=== PATIENT | female | born 1990 | race Caucasian/White ===

== ENCOUNTER → 2017-09-17 08:22 | Outpatient (CLI) | payer BC, SELFPAY ==
--- NOTE | 2017-09-17 08:29 | US_ITS ---
STUDY: ABDOMINAL ULTRASOUND - RIGHT UPPER QUADRANT REASON FOR VISIT: Female, 26 years old. Right upper quadrant pain. TECHNIQUE: Ultrasound evaluation of the right upper quadrant was performed with real-time and static odell-scale imaging. TECHNICAL QUALITY: Adequate. COMPARISON: None. FINDINGS: Liver: The liver measures 14.8 cm. There is increased echogenicity consistent with fatty infiltration. The bile ducts are within normal limits. There is hepatic color flow. The direction of portal flow is hepatopetal. There is no demonstrated mass lesion. Gallbladder: Normal distended gallbladder. The gallbladder wall measures 3.2 mm. There is a negative sonographic Peng's sign. There is no pericholecystic fluid. There are no gallstones. There is a 4 mm polyp adherent to the gallbladder wall. Common Bile Duct (C.B.D.): The common bile duct measures 3.7 mm. Pancreas: Normal size of the head, body of the pancreas. The tail portion is obscured due to overlying bowel gas. There is normal echogenicity of the pancreas. There is no demonstrated pancreatic mass or cyst. Right Kidney: Normal size of the right kidney. The right kidney measures 11.0 cm x 4.5 cm x 4.7 cm. Normal renal cortex. The right cortex measures 1.7 cm. There is no demonstrated renal mass or cyst. There is no right hydronephrosis. US/Gallbladder IMPRESSION: Fatty infiltration of the liver. Small gallbladder polyp. Electronically Signed: Joel Ashby MD at 12:51 EST Tel [phone], Service support ,
== END ==
PROVIDERS: Family Provider Family Medicine; PCP Family Medicine; Visit Provider Family Medicine
DX: K76.0 Fatty (change of) liver, not elsewhere classified (principal); K82.4 Cholesterolosis of gallbladder
CPT/HCPCS: 76705

== ENCOUNTER → 2017-10-06 12:37 | Outpatient (CLI) | payer BC, SELFPAY ==
--- NOTE | 2017-10-06 12:39 | NM_ITS ---
CLINICAL: 26 year old female with history of right upper quadrant pain. RADIONUCLIDE HEPATOBILIARY SCINTIGRAPHY COMPARISON: Abdominal ultrasound report 09/17/2017 FINDINGS: Following the intravenous administration of 5.2 mCi of 99m Tc Mebrofenin, hepatobiliary images reveal: 1. Relatively prompt and homogeneous radiopharmaceutical concentration is noted by a normal sized liver. No parenchymal defects are identified. 2. Gallbladder activity is identified at 30 minutes post radiopharmaceutical administration. 3. Small intestinal tract is observed at 10 minutes following tracer injection. 4. Washout of the radiopharmaceutical by the hepatic parenchyma appears qualitatively normal. The patient was administered a fatty meal (8 ounces BOOST-30 grams fat). The post fatty meal consumption gallbladder ejection fraction calculated at 60 minutes was noted to be 36.0 % (normal greater than 30%). NM/Hepatobilliary Imaging IMPRESSION: 1. NORMAL 99m Tc Mebrofenin hepatobiliary imaging examination with fatty meal ingestion. A. A gallbladder ejection fraction calculated to be greater than 30% following the administration of a consumed fatty meal makes the probability of functional hepatobiliary disease (gallbladder and/or sphincter of Oddi dyskinesia) and/or organic hepatobiliary disease (chronic acalculous cholecystitis and/or cystic duct syndrome) to be low. (Jaquelin and Adrian, J Nucl Med 43: 1603, 2002). Electronically Signed: Jose Ritter DO at 23:59 EST Tel , Service support ,
== END ==
PROVIDERS: Family Provider Family Medicine; PCP Family Medicine; Visit Provider Family Medicine
DX: R10.13 Epigastric pain (principal)
CPT/HCPCS: 78226; A9537

== ENCOUNTER → 2017-12-31 11:41 | Outpatient (CLI) | payer BC, SELFPAY ==
[2018-01-06 11:23] LABS: HPV Reflexed? NOT INDICATED
== END ==
PROVIDERS: Visit Provider Obstetrics & Gynecology
DX: Z12.4 Encounter for screening for malignant neoplasm of cervix (principal)
CPT/HCPCS: 88175; G0145

== ENCOUNTER 2018-08-24 18:57 | Emergency (ER) | payer BC, SELFPAY ==
[2018-08-24 18:59] VITALS: BP 152/85; PULSE 77; RESP 18; TEMP 36.7; O2SAT 99; BMI 38.4
--- NOTE | 2018-08-24 19:25 | RAD_ITS ---
STUDY: X-RAY - RIGHT ANKLE REASON FOR EXAM: Female, 27 years old. Status post fall ankle pain and swelling TECHNIQUE: 3 view(s) of the ankle. COMPARISON: None. FINDINGS: Normal visualized soft tissue edema especially about the lateral malleolus. There is a trace sliver of density distal to the fibula which may represent a tiny avulsion injury. The medial malleolus appears intact. Normal tibiotalar articulation and ankle mortise. Normal visualized talus and calcaneus. The visualized subtalar, talonavicular, calcaneocuboid and tarsal articulations are normal. RAD/Ankle min 3 Views IMPRESSION: There is soft tissue edema especially about the lateral malleolus. There is a trace sliver of density distal to the fibula which may represent a tiny avulsion injury. Electronically Signed: Christa Peng MD at 20:04 EST Tel , Service support ,
[2018-08-24 19:47] VITALS: BP 122/90; PULSE 66; RESP 18; O2SAT 99
--- NOTE | 2018-08-24 21:16 | ED.VISSUMM ---
- ER Visit Summary Date of Service: 08/24/18 Chief Complaint: Right ankle injury History of Present Illness: The patient is a 27 F who presents with right ankle injury that occurred today. Patient states she was walking on a treadmill when she fell while stepping off of the treadmill. Patient thinks she inverted her ankle. Patient denies any snapping or popping sensation. Patient states her pain is worse with movement and walking. Patient does admit to some tingling in her toes. Patient denies any weakness. Patient denies any other injuries. Physical Examination: Vital signs are stable. Patient is afebrile. Patient is in no acute distress. Musculoskeletal exam reveals tenderness, edema, and mild ecchymosis over the lateral aspect of the right ankle. There is no bony crepitance or step-off. Range of motion was limited in all motions of the right ankle secondary to pain. Pedal pulses are equal bilaterally. Sensation was intact to light touch in all dermatomes of the right foot. Capillary refill was less than 2 seconds in all digits. Test Results: X-rays of the right ankle were obtained. There is a questionable tiny avulsion fracture of the tip of the lateral malleolus. This was interpreted by the radiologist and reviewed by myself. Emergency Department Course and Treatment: Patient was given an Aircast. Patient was instructed to ice and elevate the right ankle. Patient was instructed to follow-up with her primary care physician in 5-7 days. Patient understood and was agreeable with the plan. All questions were answered. Disposition: Discharge home Impression: Acute sprain right ankle This note was generated with [employer] dictation software. It may contain incorrect words, spelling, and punctuation that were not noted in review of the chart prior to signing ED Disposition - Plan for ED Patient: Disposition: Home or Assisted Living Chief Complaint: Lower Extremity Injury Diagnosis: Right ankle sprain Instructions: ED Sprain Ankle W X Ray Referrals: Gabriel Salmeron MD [Primary Care Provider] -
--- NOTE | 2018-08-24 21:19 | ED.DCSUM_ITS ---
- ER Visit Summary Date of Service: 08/24/18 Chief Complaint: Right ankle injury History of Present Illness: The patient is a 27 F who presents with right ankle injury that occurred today. Patient states she was walking on a treadmill when she fell while stepping off of the treadmill. Patient thinks she inverted her ankle. Patient denies any snapping or popping sensation. Patient states her pain is worse with movement and walking. Patient does admit to some tingling in her toes. Patient denies any weakness. Patient denies any other injuries. Physical Examination: Vital signs are stable. Patient is afebrile. Patient is in no acute distress. Musculoskeletal exam reveals tenderness, edema, and mild ecchymosis over the lateral aspect of the right ankle. There is no bony crepitance or step-off. Range of motion was limited in all motions of the right ankle secondary to pain. Pedal pulses are equal bilaterally. Sensation was intact to light touch in all dermatomes of the right foot. Capillary refill was less than 2 seconds in all digits. Test Results: X-rays of the right ankle were obtained. There is a questionable tiny avulsion fracture of the tip of the lateral malleolus. This was interpreted by the radiologist and reviewed by myself. Emergency Department Course and Treatment: Patient was given an Aircast. Patient was instructed to ice and elevate the right ankle. Patient was instruct ed to follow-up with her primary care physician in 5-7 days. Patient understood and was agreeable with the plan. All questions were answered. Disposition: Discharge home Impression: Acute sprain right ankle This note was generated with [employer] dictation software. It may contain incorrect words, spelling, and punctuation that were not noted in review of the chart prior to signing ED Disposition - Plan for ED Patient: Disposition: Home or Assisted Living Chief Complaint: Lower Extremity Injury Diagnosis: Right ankle sprain Instructions: ED Sprain Ankle W X Ray Referrals: Gabriel Salmeron MD [Primary Care Provider] -
[2018-08-24] MEDS: Ibuprofen 400 MG Tablet 800 MG PO (21:24)
== END 2018-08-24 21:51 | disposition home or self-care (01) ==
PROVIDERS: Emergency Provider Emergency Medicine; Family Provider Family Medicine; PCP Family Medicine
DX: S93.401A Sprain of unspecified ligament of right ankle, initial encounter (principal); W17.89XA Other fall from one level to another, initial encounter; Y93.A1 Activity, exercise machines primarily for cardiorespiratory conditioning
CPT/HCPCS: 73610; 99283

== ENCOUNTER → 2021-01-10 17:16 | Outpatient (CLI) | payer OTHER, SELFPAY ==
[2021-01-10 13:41] VITALS: BMI 38.4
[2021-01-17 15:22] LABS: HPV APTIMA, High Risk Negative (Negative)
== END ==
PROVIDERS: PCP Family Medicine; Referring Provider Obstetrics & Gynecology; Visit Provider Obstetrics & Gynecology
DX: Z12.4 Encounter for screening for malignant neoplasm of cervix (principal)
CPT/HCPCS: 87624; 88175; G0145

== ENCOUNTER → 2021-04-05 13:36 | Outpatient (CLI) | payer OTHER, SELFPAY ==
[2021-04-05 15:09] LABS: Absolute Lymphocyte Count 2.25 X10^3/uL (0.83-4.51); Absolute Neutrophil Count 5.1 X10^3/uL (2.0-7.7); Basophil# 0.05 X10^3/uL; Basophil% 0.6 % (0-1); Eosinophils% 1.3 % (0-5); Hematocrit 43.9 % (37-47); Hemoglobin 14.6 g/dL (12.0-15.0); Lymphocyte # 2.25 X10^3/ul (0.83-4.51); Lymphocyte % 28.1 % (19-41); Mean Corp Hgb Conc 33.3 g/dL (32-36); Mean Corpuscular Hgb 28.2 pg (27.0-32.0); Mean Corpuscular Volume 84.9 fL (81-99); Mean Platelet Vol. 9.7 fl (6.2-12.0); Monocyte# 0.45 X10^3/uL; Monocyte% 5.6 % (0-10); NRBC Flagged by Analyzer 0 % (0-5); Neutrophil # 5.12 X10^3/uL (2.7-7.7); Platelet Count 318 K/mm3 (150-450); RBC Distribution Width CV 13.1 % (11.6-14.6); RBC Distribution Width SD 40.8 fl (35.1-43.9); Red Blood Count 5.17 M/mm3 (4.2-5.4)
[2021-04-05 15:21] LABS: Vitamin B12 504 pg/mL (211-911)
[2021-04-05 15:27] LABS: ALB/GLOB Ratio 1.1 RATIO (0.9-2.4); AST(SGOT) 13 U/L (15-37); Alanine Aminotransfer ALT/SGPT 33 U/L (13-56); Albumin, Serum 4.2 g/dL (3.2-5.0); Alkaline Phosphatase 78 U/L (45-117); Anion Gap 6 (5-15); BUN 12 mg/dL (7-18); BUN/Creat Ratio 14.2 RATIO (10-20); Calcium,Total 8.9 mg/dL (8.5-10.1); Chloride 105 mmol/L (98-107); Cholesterol 170 mg/dL (200); Creatinine, Serum 0.84 mg/dL (0.55-1.02); EST Glomerular Filtration Rate 83 mL/min (>60); Est Glom Filt Rate - Afr Amer 100 mL/min (>60); Globulin 3.8 g/dL (2.2-4.2); Glucose 117 mg/dL (74-106); High Density Lipoprotein 45 mg/dL; Potassium 3.4 mmol/L (3.5-5.1); Sodium Level 137 mmol/L (136-145); T4 Free Direct 0.91 ng/dL (0.76-1.46); Thyroid Stim Hormone (TSH) 0.51 uIU/mL (0.358-3.74); Triglycerides 129 mg/dL; Very Low Density Lipoprotein 26 mg/dL (5-40)
== END ==
PROVIDERS: PCP Family Medicine; Referring Provider Family Medicine; Visit Provider Family Medicine
DX: E66.01 Morbid (severe) obesity due to excess calories (principal); K76.0 Fatty (change of) liver, not elsewhere classified; R20.2 Paresthesia of skin; R06.00 Dyspnea, unspecified
CPT/HCPCS: 36415; 80053; 80061; 82607; 84439; 84443; 85025

== ENCOUNTER 2021-07-16 12:30 | Outpatient (RCR) | payer OTHER, SELFPAY ==
--- NOTE | 2020-12-05 13:25 | MASS.EVAL ---
Massage Therapy Evaluation: Initial Evaluation Date: 12/04/2020 SUBJECTIVE: Ada is a 29 year old female who was referred to the [facility] facility for a massotherapy evaluation by Dr. Salmeron with the diagnosis of cervicalgia and shoulder pain. She presents today with the symptoms of pain, stiffness and tension in the neck, head, mid back and low back. OBJECTIVE: Upon observation Ada has some posture issues with her head and shoulders forward from the neutral position in sitting and standing. After examination and palpation, I found Ada to have high muscle tension with tenderness and myofascial restrictions in her sub occipitals, levator scapulae, trapezius, rhomboids, scalenes, and thoracic paraspinals. Her QL?s and lumbar paraspinals all were very tight with fascial restrictions, tender points and trigger points. The first treatment consisted of a one hour massage to her upper body with myofascial release, muscle stripping, trigger point compression techniques, and cervical manual traction. ASSESSMENT: I feel that Ada is a good candidate for massotherapy at this time. She had a favorable response to the first treatment with reduction in her muscle aches, pain and tension. She also had improvement in her cervical flexibility and low back flexibility. PLAN: The plan of care was reviewed with the patient. The patient is to be seen on an as needed basis for a total of ten sessions with the recommendation of once every month for a one hour treatment.
--- NOTE | 2021-08-13 09:50 | DS.PCM_ITS ---
Massage Therapy Discharge Summary: Discharge date 08/13/21 Ada was seen for a massotherapy evaluation on December 04, 2020. She was being treated for neck and shoulder pain. The patient was treated with 3 sessions of massage consisting of one hour treatment to the upper body using moderate to deep pressure. The patient responded well to treatments. At this time I am discharging this patient from our care at the [facility].
== END 2021-07-16 19:00 | disposition home or self-care (01) ==
LOC: MASS 12:30
PROVIDERS: PCP Family Medicine; Visit Provider Family Medicine
DX: M54.2 Cervicalgia (principal); M25.511 Pain in right shoulder; M25.512 Pain in left shoulder
CPT/HCPCS: 97124

== ENCOUNTER → 2021-07-22 11:58 | Outpatient (CLI) | payer OTHER, SELFPAY ==
--- NOTE | 2021-07-22 13:23 | NEURO ---
NCS and/or EMG Patient Report Ordering Doctor: Jeremías Lam DATE OF SERVICE: 07/22/21 Indication: Intermittent hand pain, tingling, weakness (right greater than left). No localized or radicular neck pain. Evaluate for entrapment neuropathy. Findings: Nerve conduction studies were performed in the right and left upper extremities. The right median motor study recording the abductor pollicis brevis showed a normal amplitude, normal distal latency and normal conduction velocity. The right ulnar motor study recording the abductor digiti minimi showed a normal amplitude, normal distal latency and normal conduction velocity. No conduction block or focal slowing was present across the elbow. The right median sensory response recording digit two showed a normal amplitude, latency and conduction velocity. The right ulnar sensory response recording digit five showed a normal amplitude, latency and conduction velocity. The right radial sensory response recording over the extensor snuff box showed a normal amplitude, latency and conduction velocity. The left median motor study recording the abductor pollicis brevis showed a normal amplitude, normal distal latency and normal conduction velocity. The left ulnar motor study recording the abductor digiti minimi showed a normal amplitude, normal distal latency and normal conduction velocity. No conduction block or focal slowing was present across the elbow. The left median sensory response recording digit two showed a normal amplitude, latency and conduction velocity. The left ulnar sensory response recording digit five showed a normal amplitude, latency and conduction velocity. The left radial sensory response recording over the extensor snuff box showed a normal amplitude, latency and conduction velocity. Right median-ulnar lumbrical / interosseous motor latencies showed a normal median latency compared to the ulnar. Left median-ulnar lumbrical / interosseous motor latencies showed a normal median latency compared to the ulnar. Needle EMG of the right upper extremity and cervical paraspinal muscles was performed. No denervation was seen in any muscle. All motor unit morphology, activation and recruitment patterns were normal. Impression: This is a normal study. There is no electrophysiologic evidence of median neuropathy across the wrist on either side. In addition, there is no electrophysiologic evidence of cervical radiculopathy in the right upper extremity. Please note: electrodiagnostic testing is appropriately 95% sensitive in detecting median neuropathy across the wrist when internal comparison studies are done, as was performed in this case. However, 5% of patients will have a false negative study. Presumably, in these patients, intermittent compression results in pain and paresthesias from ischemia, but without any fixed demyelination or axonal loss that can be demonstrated on electrodiagnostic studies. Thus, clinical correlation is required in the interpretation of this negative study. Armani Cline D.O. Multi Select Codes Neurology Neurology Interp Codes: 36104-29 [facility] [place] comp (interp) and 50365-30 [facility] test 13/> studies (interp)
== END ==
PROVIDERS: PCP Family Medicine; Referring Provider Orthopaedic Surgery; Visit Provider Orthopaedic Surgery
DX: G56.03 Carpal tunnel syndrome, bilateral upper limbs (principal)
CPT/HCPCS: 95886; 95913

== ENCOUNTER → 2022-03-07 | Outpatient (CLI) | payer OTHER, SELFPAY ==
[2022-03-07 12:31] LABS: Absolute Lymphocyte Count 2.19 X10^3/uL (0.83-4.51); Absolute Neutrophil Count 4.9 X10^3/uL (2.0-7.7); Basophil# 0.06 X10^3/uL; Basophil% 0.8 % (0-1); Eosinophil# 0.16 X10^3/uL; Hematocrit 44.2 % (37-47); Hemoglobin 14.4 g/dL (12.0-15.0); Lymphocyte # 2.19 X10^3/ul (0.83-4.51); Lymphocyte % 27.5 % (19-41); Mean Corp Hgb Conc 32.6 g/dL (32-36); Mean Corpuscular Hgb 28.6 pg (27.0-32.0); Mean Corpuscular Volume 87.7 fL (81-99); Mean Platelet Vol. 9.7 fl (6.2-12.0); Monocyte# 0.65 X10^3/uL; Monocyte% 8.2 % (0-10); NRBC Flagged by Analyzer 0 % (0-5); Neutrophil # 4.87 X10^3/uL (2.7-7.7); Neutrophil % 61.2 % (47-70); Platelet Count 333 K/mm3 (150-450); RBC Distribution Width CV 13.3 % (11.6-14.6); RBC Distribution Width SD 42.8 fl (35.1-43.9); Red Blood Count 5.04 M/mm3 (4.2-5.4)
[2022-03-07 12:41] LABS: AST(SGOT) 15 U/L (15-37); Alanine Aminotransfer ALT/SGPT 31 U/L (13-56); Albumin, Serum 3.8 g/dL (3.2-5.0); Alkaline Phosphatase 77 U/L (45-117); Anion Gap 5 (5-15); BUN 11 mg/dL (7-18); BUN/Creat Ratio 12.9 RATIO (10-20); Chloride 110 mmol/L (98-107); Creatinine, Serum 0.85 mg/dL (0.55-1.02); EST Glomerular Filtration Rate 82 mL/min (>60); Est Glom Filt Rate - Afr Amer 99 mL/min (>60); Globulin 3.8 g/dL (2.2-4.2); Glucose 98 mg/dL (74-106); Potassium 3.8 mmol/L (3.5-5.1); Protein, Total 7.6 g/dL (6.4-8.2); Sodium Level 140 mmol/L (136-145); Thyroid Stim Hormone (TSH) 1.14 uIU/mL (0.358-3.74)
[2022-03-07 12:55] LABS: Hemoglobin A1c 5.2 % (3.8-5.6)
== END | disposition home or self-care (01) ==
LOC: MTLAB 09:43
PROVIDERS: PCP Family Medicine; Referring Provider Family Medicine; Visit Provider Family Medicine
DX: K76.0 Fatty (change of) liver, not elsewhere classified (principal); F41.9 Anxiety disorder, unspecified; R53.83 Other fatigue; R73.02 Impaired glucose tolerance (oral)
CPT/HCPCS: 36415; 80053; 83036; 84439; 84443; 85025

== ENCOUNTER → 2022-09-11 | Outpatient (CLI) | payer OTHER, SELFPAY ==
[2022-09-15 06:07] LABS: Chlamydia By Nucleic Acid AMP Negative (Negative)
[2022-09-15 10:07] LABS: Gonococcus By Nucleic Acid AMP Negative (Negative)
== END | disposition home or self-care (01) ==
LOC: LABSPEC 17:45
PROVIDERS: PCP Family Medicine; Visit Provider Nurse Practitioner Women's Health
DX: Z11.3 Encounter for screening for infections with a predominantly sexual mode of transmission (principal)
CPT/HCPCS: 87491; 87591

== ENCOUNTER → 2022-10-10 | Outpatient (CLI) | payer OTHER, SELFPAY ==
--- NOTE | 2022-10-10 13:15 | LES_PTH ---
PATIENT: BIJU ELLSWORTH LOC: [facility] U#:[id number] AGE/SX: 31/F ROOM: RE10/10/[address]: Dr. Kacie Shaver DO : 1990 BED: DIS: 10/10/2022 SPEC #: [id number] RECD: 10/10/22 17:34 STATUS: KELLY TRORE #: [id number] EDWIN: 10/10/22 13:[address]: Kacie Shaver DEPT: SURGICAL PATHOLOGY RECD BY: Gail Arredondo ENTERED: 10/13/22 10:11 SP TYPE: Lesion OTHR DR: Dr. Gabriel Salmeron MD Tissues: Labium, NOS Procedures: Surgery Specimen Level IV HEADER OPERATION: Mole removal PRE-OP DIAGNOSIS: Skin mole TISSUE SUBMITTED: Left groin/labia MICROSCOPIC DIAGNOSIS Left groin/labia lesion, biopsy: Polypoid intradermal nevus. SJ:melony 10/14/2022 MICROSCOPIC DESCRIPTION Slides are reviewed. GROSS DESCRIPTION Received is one container labeled with the patient's name and not further designated. The specimen consists of an irregular fragment of light ramires skin with attached soft tissue measuring 1.5 x 1.0 x 0.5 cm. The cutaneous surface contains a polypoid lesion measuring 0.6 cm in greatest dimension. The specimen is inked, sectioned and totally submitted in one cassette. / AM:melony 10/13/2022 TC:1 CPT: 41372
== END | disposition home or self-care (01) ==
PROVIDERS: PCP Family Medicine; Visit Provider Obstetrics & Gynecology
DX: D22.9 Melanocytic nevi, unspecified (principal)
CPT/HCPCS: 88305

== ENCOUNTER → 2022-12-04 | Outpatient (CLI) | payer OTHER, SELFPAY ==
[2022-12-04 12:22] LABS: Vitamin D,25 Hydroxy 25.6 ng/mL
== END | disposition home or self-care (01) ==
LOC: BIMLAB 08:38
PROVIDERS: PCP Internal Medicine; Referring Provider Internal Medicine; Visit Provider Internal Medicine
DX: F32.A Depression, unspecified (principal); F41.9 Anxiety disorder, unspecified
CPT/HCPCS: 36415; 82306

== ENCOUNTER → 2023-02-19 | Outpatient (CLI) | payer OTHER, SELFPAY ==
[2023-02-19 18:13] LABS: Insulin 151.3 mU/L (2.6-37.6); Vitamin B12 347 pg/mL (211-911)
[2023-02-19 18:17] LABS: Hemoglobin A1c 5.4 % (3.8-5.6)
[2023-02-19 18:39] LABS: ALB/GLOB Ratio 0.9 RATIO (0.9-2.4); AST(SGOT) 17 U/L (15-37); Alanine Aminotransfer ALT/SGPT 37 U/L (13-56); Albumin, Serum 3.5 g/dL (3.2-5.0); Alkaline Phosphatase 72 U/L (45-117); Anion Gap 5 (5-15); BUN 14 mg/dL (7-18); BUN/Creat Ratio 14.1 RATIO (10-20); Calcium,Total 8.9 mg/dL (8.5-10.1); Chloride 108 mmol/L (98-107); Cholesterol 142 mg/dL (200); Creatinine, Serum 0.99 mg/dL (0.55-1.02); EST Glomerular Filtration Rate 68 mL/min (>60); Est Glom Filt Rate - Afr Amer 82 mL/min (>60); Globulin 3.7 g/dL (2.2-4.2); Glucose 102 mg/dL (74-106); High Density Lipoprotein 40 mg/dL; Potassium 3.9 mmol/L (3.5-5.1); Protein, Total 7.2 g/dL (6.4-8.2); Sodium Level 138 mmol/L (136-145); Thyroid Stim Hormone (TSH) 1.14 uIU/mL (0.358-3.74); Triglycerides 160 mg/dL; Very Low Density Lipoprotein 32 mg/dL (5-40)
== END | disposition home or self-care (01) ==
PROVIDERS: PCP Internal Medicine
DX: E66.01 Morbid (severe) obesity due to excess calories (principal)
CPT/HCPCS: 36415; 80053; 80061; 82607; 83036; 83525; 84443

== ENCOUNTER → 2023-08-05 | Outpatient (CLI) | payer OTHER, SELFPAY ==
[2023-08-05 18:03] LABS: Vitamin B12 361 pg/mL (211-911)
== END | disposition home or self-care (01) ==
LOC: MTLAB 16:47
PROVIDERS: PCP Internal Medicine
DX: E66.9 Obesity, unspecified (principal)
CPT/HCPCS: 36415; 82607

== ENCOUNTER → 2023-11-18 | Outpatient (CLI) | payer OTHER, SELFPAY ==
[2023-11-18 15:29] LABS: Progesterone Level 8.37 ng/mL (See Comment)
== END | disposition home or self-care (01) ==
LOC: MTLAB 12:39
PROVIDERS: PCP Internal Medicine; Referring Provider Nurse Practitioner Women's Health; Visit Provider Nurse Practitioner Women's Health
DX: N97.9 Female infertility, unspecified (principal)
CPT/HCPCS: 36415; 84144

== ENCOUNTER → 2023-11-27 | Outpatient (CLI) | payer OTHER, SELFPAY ==
[2023-11-27 14:00] LABS: Follicle Stimulating Hormone 5.3 mIU/mL; Luteinizing Hormone 5.1 mIU/mL; Prolactin 3.9 ng/mL; Thyroid Stim Hormone (TSH) 0.83 uIU/mL (0.358-3.74)
[2023-12-03 12:10] LABS: Testosterone Free 1.1 pg/mL (0.0-4.2)
== END | disposition home or self-care (01) ==
PROVIDERS: PCP Internal Medicine; Referring Provider Nurse Practitioner Women's Health; Visit Provider Nurse Practitioner Women's Health
DX: N97.9 Female infertility, unspecified (principal)
CPT/HCPCS: 36415; 82627; 82670; 83001; 83002; 83516; 84146; 84402; 84443; 82626

== ENCOUNTER → 2024-02-10 | Outpatient (CLI) | payer OTHER, SELFPAY ==
[2024-02-10 15:15] LABS: Absolute Lymphocyte Count 2.79 X10^3/uL (0.83-4.51); Absolute Neutrophil Count 4.8 X10^3/uL (2.0-7.7); Basophil# 0.04 X10^3/uL; Basophil% 0.5 % (0-1); Eosinophil# 0.17 X10^3/uL; Hematocrit 40.3 % (37-47); Lymphocyte # 2.79 X10^3/ul (0.83-4.51); Lymphocyte % 33.3 % (19-41); Mean Corp Hgb Conc 32.3 g/dL (32-36); Mean Corpuscular Hgb 27.3 pg (27.0-32.0); Mean Corpuscular Volume 84.7 fL (81-99); Mean Platelet Vol. 9.5 fl (6.2-12.0); Monocyte# 0.59 X10^3/uL; NRBC Flagged by Analyzer 0 % (0-5); Neutrophil # 4.79 X10^3/uL (2.7-7.7); Neutrophil % 57.1 % (47-70); Platelet Count 333 K/mm3 (150-450); Red Blood Count 4.76 M/mm3 (4.2-5.4); White Blood Count 8.4 K/mm3 (4.4-11.0)
[2024-02-10 15:54] LABS: Vitamin B12 307 pg/mL (211-911); Vitamin D,25 Hydroxy 34.3 ng/mL
[2024-02-10 16:09] LABS: ALB/GLOB Ratio 1.1 RATIO (0.9-2.4); AST(SGOT) 14 U/L (15-37); Alanine Aminotransfer ALT/SGPT 27 U/L (13-56); Alkaline Phosphatase 70 U/L (45-117); Anion Gap 7 (5-15); BUN 15 mg/dL (7-18); BUN/Creat Ratio 20.4 RATIO (10-20); Calcium,Total 9.2 mg/dL (8.5-10.1); Chloride 106 mmol/L (98-107); Creatinine, Serum 0.74 mg/dL (0.55-1.02); EST Glomerular Filtration Rate 95 mL/min (>60); Est Glom Filt Rate - Afr Amer 115 mL/min (>60); Globulin 3.6 g/dL (2.2-4.2); Glucose 81 mg/dL (74-106); Potassium 3.6 mmol/L (3.5-5.1); Protein, Total 7.6 g/dL (6.4-8.2); Sodium Level 139 mmol/L (136-145)
== END | disposition home or self-care (01) ==
PROVIDERS: PCP Internal Medicine; Referring Provider Internal Medicine; Visit Provider Internal Medicine
DX: F32.A Depression, unspecified (principal); F41.9 Anxiety disorder, unspecified; R53.83 Other fatigue
CPT/HCPCS: 36415; 80053; 82306; 82607; 85025

== ENCOUNTER → 2024-04-07 | Outpatient (CLI) | payer OTHER, SELFPAY ==
--- NOTE | 2024-04-07 12:17 | BI_ITS ---
MAMMOGRAPHY - BILATERAL SCREENING REASON FOR EXAM: Female, 33 years old. Routine annual screening examination. PERTINENT HISTORY: Non-contributory. TECHNIQUE: Digital bilateral breast raj (3D mammographic acquisition) in the CC and MLO projections. 2-D mediolateral oblique (MLO) and craniocaudad (CC) views of both breasts were obtained. CAD: Full Field Digital Mammography with Computer Added Detection was performed. COMPARISON: None. Baseline examination. FINDINGS: Breast Composition: The breasts are heterogeneously dense, which may obscure small masses. Focal area of architectural distortion is seen in the deep upper lateral aspect of the right breast. Patient will be recalled for additional views including compression spot views. No other significant abnormalities are identified. BI/SCRN MAMM (CAD)W/RAJ BILAT IMPRESSION: Focal area of architectural distortion is seen in the upper lateral aspect of the right breast as described. The patient will be recalled for additional views. Recall Side: Right Breast ASSESSMENT CATEGORY: BIRADS Category 0: Incomplete. Need additional imaging evaluation. A letter regarding these results will be sent to the patient by the facility within 30 days. Approximately 10% of breast cancers are not detected by mammography. A normal mammogram should not delay biopsy of a clinically suspicious abnormality. [id number] Electronically Signed: Joel Ashby MD at 12:52 EDT ,
== END | disposition home or self-care (01) ==
LOC: OPBI 12:17
PROVIDERS: PCP Internal Medicine; Referring Provider Nurse Practitioner Women's Health; Visit Provider Nurse Practitioner Women's Health
DX: Z12.31 Encounter for screening mammogram for malignant neoplasm of breast (principal)
CPT/HCPCS: 77063; 77067

== ENCOUNTER → 2024-04-11 | Outpatient (CLI) | payer OTHER, SELFPAY ==
--- NOTE | 2024-04-11 08:59 | BI_ITS ---
MAMMOGRAPHY - UNILATERAL DIAGNOSTIC: RIGHT BREAST REASON FOR EXAM: Female, 33 years old. Abnormal screening mammogram. PERTINENT HISTORY: Non-contributory. TECHNIQUE: Compression spot views in the mediolateral oblique and craniocaudal projections as well as a 90 degree lateral view were obtained. CAD: Full Field Digital Mammography with Computer Added Detection was performed. COMPARISON: Comparison is made with prior study April 07, 2024. FINDINGS: Breast Composition: The breasts are heterogeneously dense, which may obscure small masses. Persistent architectural distortion in the upper lateral aspect of the right breast. Correlation with ultrasound is recommended. No other significant abnormalities are identified. BI/DIAG MAMM W/CAD, UNILAT IMPRESSION: Persistent architectural distortion in the upper lateral aspect of the right breast as described. Correlation with ultrasound is recommended. ASSESSMENT CATEGORY: BIRADS Category 0: Incomplete. Need additional imaging evaluation. A letter regarding these results will be sent to the patient by the facility within 30 days. Approximately 10% of breast cancers are not detected by mammography. A normal mammogram should not delay biopsy of a clinically suspicious abnormality. Electronically Signed: Joel Ashby MD at 10:02 EDT ,
--- NOTE | 2024-04-11 08:59 | US_ITS ---
STUDY: ULTRASOUND BREAST - RIGHT REASON FOR EXAM: Female, 33 years old. Abnormal screening mammogram. TECHNIQUE: Axial and longitudinal images of the RIGHT breast were performed with a high resolution ultrasound transducer. # OF IMAGES: 44 COMPARISON: Comparison is made with prior mammogram dated April 07, 2024 and April 11, 2024. FINDINGS: RIGHT Breast: The upper-outer quadrant of the right breast was examined with ultrasound. There is a 1.4 cm x 1.4 cm x 1.2 cm spiculated hypoechoic irregular nodule at the 9:00 position of the breast at 7 cm from the nipple. Increased vascularity is seen. There is also evidence of a 3 mm x 4 mm x 2 mm hypoechoic nodule with increased vascularity at the 9:00 position of the breast at 9 cm from nipple. Biopsy recommended. Incidental note is made of dilated ducts with possible calcifications within the duct. US/Breast Limited Unilateral IMPRESSION: 1.4 cm x 1.4 cm x 1.2 cm spiculated hypoechoic nodular density at the 9:00 position breast 7 cm from the nipple. Dilated ducts are seen with the calcific densities within them. Biopsy recommended. 3 mm x 4 mm x 2 mm hypoechoic nodule at the 9:00 position of the breast at 9 summary from nipple. Biopsy recommended. ASSESSMENT CATEGORY: BIRADS Category 4: Suspicious - Biopsy Should Be Considered. A letter regarding these results will be sent to the patient by the facility within 30 days. Electronically Signed: Joel Ashby MD at 10:34 EDT ,
== END | disposition home or self-care (01) ==
PROVIDERS: PCP Internal Medicine; Referring Provider Nurse Practitioner Women's Health; Visit Provider Nurse Practitioner Women's Health
DX: R92.8 Other abnormal and inconclusive findings on diagnostic imaging of breast (principal)
CPT/HCPCS: 76642; 77061; 77065; G0279

== ENCOUNTER → 2024-04-14 | Outpatient (CLI) | payer OTHER, SELFPAY ==
--- NOTE | 2024-04-14 10:07 | US_ITS ---
STUDY: ULTRASOUND BREAST - RIGHT REASON FOR EXAM: Female, 33 years old. Right breast masses. TECHNIQUE: Axial and longitudinal images of the RIGHT breast were performed with a high resolution ultrasound transducer. # OF IMAGES: 59 COMPARISON: Comparison is made with prior sonogram dated April 11, 2024. FINDINGS: RIGHT Breast: The surgeon performed core biopsies of the 5 mm x 4 mm x 5 mm irregular nodule at the 9:00 position of the breast at 7 cm from the nipple. IMPRESSION: Ultrasound-guided biopsy of the 5 mm x 4 mm x 5 mm irregular nodule at the 9:00 position breast at 7 cm from the nipple. ASSESSMENT CATEGORY: BIRADS Category 4: Suspicious - Biopsy Should Be Considered. A letter regarding these results will be sent to the patient by the facility within 30 days. Electronically Signed: Joel Ashby MD at 12:20 EDT , STUDY: ULTRASOUND BREAST - RIGHT REASON FOR EXAM: Female, 33 years old. Abnormal sonogram. TECHNIQUE: Axial and longitudinal images of the RIGHT breast were performed with a high resolution ultrasound transducer. # OF IMAGES: 59 COMPARISON: Comparison is made with prior sonogram dated April 11, 2024. FINDINGS: RIGHT Breast: Under direct sonographic guidance, the surgeon performed a biopsy of the 3 mm x 4 mm x 2 mm nodule at the 9:00 position of the breast at 9 cm from the nipple. US/US Breast Biopsy 1st Lesion IMPRESSION: Sonographic guidance for biopsy of the nodule at the 9:00 position of breast at 9 cm from nipple. ASSESSMENT CATEGORY: BIRADS Category 4: Suspicious - Biopsy Should Be Considered. A letter regarding these results will be sent to the patient by the facility within 30 days. Electronically Signed: Joel Ashby MD at 12:22 EDT ,
--- NOTE | 2024-04-14 10:09 | US_ITS ---
STUDY: ULTRASOUND BREAST - RIGHT REASON FOR EXAM: Female, 33 years old. Right breast masses. TECHNIQUE: Axial and longitudinal images of the RIGHT breast were performed with a high resolution ultrasound transducer. # OF IMAGES: 59 COMPARISON: Comparison is made with prior sonogram dated April 11, 2024. FINDINGS: RIGHT Breast: The surgeon performed core biopsies of the 5 mm x 4 mm x 5 mm irregular nodule at the 9:00 position of the breast at 7 cm from the nipple. IMPRESSION: Ultrasound-guided biopsy of the 5 mm x 4 mm x 5 mm irregular nodule at the 9:00 position breast at 7 cm from the nipple. ASSESSMENT CATEGORY: BIRADS Category 4: Suspicious - Biopsy Should Be Considered. A letter regarding these results will be sent to the patient by the facility within 30 days. Electronically Signed: Joel Ashby MD at 12:20 EDT , STUDY: ULTRASOUND BREAST - RIGHT REASON FOR EXAM: Female, 33 years old. Abnormal sonogram. TECHNIQUE: Axial and longitudinal images of the RIGHT breast were performed with a high resolution ultrasound transducer. # OF IMAGES: 59 COMPARISON: Comparison is made with prior sonogram dated April 11, 2024. FINDINGS: RIGHT Breast: Under direct sonographic guidance, the surgeon performed a biopsy of the 3 mm x 4 mm x 2 mm nodule at the 9:00 position of the breast at 9 cm from the nipple. US/US Breast Bx EA Add Lesion IMPRESSION: Sonographic guidance for biopsy of the nodule at the 9:00 position of breast at 9 cm from nipple. ASSESSMENT CATEGORY: BIRADS Category 4: Suspicious - Biopsy Should Be Considered. A letter regarding these results will be sent to the patient by the facility within 30 days. Electronically Signed: Joel Ashby MD at 12:22 EDT ,
--- NOTE | 2024-04-14 10:40 | BRBX_PTH ---
PATIENT: BIJU ELLSWORTH LOC: [facility]#:[id number] AGE/SX: 33/F ROOM: RE04/14/[address]: Dr. Elsa Buckley MD : 1990 BED: DIS: 04/14/2024 SPEC #: [id number] RECD: 04/14/24 11:02 STATUS: KELLY YELITZA #: [id number] EDWIN: 04/14/24 10:[address]: Elsa Buckley DEPT: SURGICAL PATHOLOGY RECD BY: Saul Vargas ENTERED: 04/14/24 11:31 SP TYPE: BREAST BX OTHR DR: Dr. Karen Lucia MD Tissues: A - Right breast, NOS B - Right breast, NOS Procedures: Surgery Specimen Level IV HEADER OPERATION: Ultrasound guided breast biopsy PRE-OP DIAGNOSIS: Right breast lesion x2 TISSUE SUBMITTED: A- Right breast mass 9o'clock, 9cm from nipple, B- Right breast mass 9o'clock, 7cm from nipple Ischemic Time: 1 minute Fixation Time: 9 hours, 20minutes MICROSCOPIC DIAGNOSIS A. Right breast mass, 9o'clock, 9 cm from nipple, ultrasound guided core biopsy: Intraductal hyperplasia with focal atypia. Negative for malignancy. See comment. B. 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 Focal microcalcifications. Negative for malignancy. See comment. 04/15/2024 COMMENT Correlation with clinical, radiologic findings and appropriate follow up are necessary. Case has been reviewed in consultation with Dr. Wooten who concurs with the above diagnosis. IDC:AM MICROSCOPIC DESCRIPTION Slides are reviewed. GROSS DESCRIPTION A. Received in fixative is one container labeled with the patient's name and designated Right breast 9o'clock, 9.0cm from nipple. The specimen consists of multiple elongated fragments of ramires-yellow fibroadipose tissue that in aggregate measure 2.5 x 0.5 x 0.1 cm. The specimen is totally submitted in one cassette. B. Received in fixative is one container labeled with the patient's name and designated Right breast 9o'clock, 7.0cm from nipple. The specimen consists of multiple elongated fragments of ramires-yellow fibroadipose tissue that in aggregate measure 1.5 x 0.5 x 0.1 cm. The specimen is totally submitted in one cassette. SJ 04/14/2024 TC:5 CPT:21008e2
--- NOTE | 2024-04-14 10:51 | PCM.OPRPT ---
Report of Operation Date of Procedure: 04/14/24 Pre-Operative Diagnosis: Right breast mass x 2 Post-Operative Diagnosis: Same Surgery/Procedure Performed:: Ultrasound-guided right breast biopsy x 2 Surgeon: Elsa Buckley Type of Anesthesia: Local Specimen's removed: 1. Right breast mass 9:00 9 cm from the nipple, #2 right breast mass 9:00 7 cm from nipple Estimated Blood Loss (mL): < 5 cc Description of Procedure: Procedure: Right ultrasound-guided core biopsy x 2 Indications: 33year-old female with hypoechoic nodules at 9:00 in the right breast 7 and 9 cm centimeters from the nipple. Risk benefits were discussed the patient and she elected to proceed with ultrasound guided core biopsy with clip placement Description of procedure: Patient was brought into the ultrasound room in the right breast was marked. A timeout was completed verifying correct patient, procedure, site, specially, prior to beginning procedure. The right breast was prepped and draped in usual sterile fashion and using local anesthesia was obtained with 1% lidocaine with epi. The lesions were located with the ultrasound. Small incision was made with 11 blade to introduced the mammotome for the 9:00 and BARD MaxCore for the 7:00 through the skin. Under ultrasound guidance multiple core samples were obtained using then 13-gauge mammotome for the 9:00 and 14-gauge BARD MaxCore for the 7:00 and sent in formalin for pathology. The Bard dual ultra-(ribbon clip for 9:00 and coil clip for 7:00 clip) were then deployed into the biopsy cavity under ultrasound guidance and a picture was taken. Upon completion procedure hemostasis was obtained and a Steri-Strip and OpSite were placed. Patient was then taken to the mammography suite for clip verification. The clip was verified. The patient tolerated the procedure well and was discharged from the breast imaging department good condition. Complications none
== END | disposition home or self-care (01) ==
LOC: US 10:06
PROVIDERS: PCP Internal Medicine; Referring Provider Surgery; Visit Provider Surgery
DX: N63.10 Unspecified lump in the right breast, unspecified quadrant (principal); D24.1 Benign neoplasm of right breast; R92.0 Mammographic microcalcification found on diagnostic imaging of breast
CPT/HCPCS: 19083; 19084; 88305

== ENCOUNTER 2024-05-05 06:58 | Day surgery (SDC) | payer OTHER, SELFPAY ==
[2024-05-05] VITALS (7 sets, daily range): BP systolic 130–143; BP diastolic 78–102; PULSE 74–88; RESP 16–18; TEMP 36–37.1; O2SAT 95–98; BMI 39.4
--- NOTE | 2024-05-05 | IMM_PTH ---
PATIENT: BIJU ELLSWORTH LOC: [facility] U#:[id number] AGE/SX: 33/F ROOM: RE05/05/[address]: Dr. Elsa Buckley MD : 1990 BED: DIS: 05/05/2024 SPEC #: [id number] RECD: 05/10/24 10:37 STATUS: KELLY REQ #: [id number] EDWIN: 05/05/24 00:[address]: Elsa Buckley DEPT: IMMUNOHISTOCHEMISTRY RECD BY: Luke Bell ENTERED: 05/10/24 10:37 SP TYPE: IMMUNO OTHR DR: Dr. Karen Lucia MD Tissues: B - Right breast, NOS Procedures: E-CAD (initial) CALPONIN-1 (add) CK8 (add) P40 (add) PHYSICIAN & INSTITUTION [place] [phone] SPECIMEN INFORMATION: Tissue Source: B- Right breast 9o'clock, 7cm Clinical Info: Atypical ductal hyperplasia of right breast, intraductal papilloma of right breast Specimen Number: [id number] CPT code: 30022,43168k45 METHODOLOGY: Deparaffinized sections of prefer/formalin-fixed tissue or PAP/DQ stained slides are incubated with monoclonal/polyclonal antibodies/oligonucleotide probes. Localization is made via biotin free immunoperoxidase method. Appropriate controls are performed and reacted as expected. Results on target cell population are indicated in the following table: RESULTS: ANTIBODY / CLONE RESULT Block B4 E-Cad (ECH-6) positive CK8 ([id number]) positive Calponin-1 (VV764Z) positive P40 (BC28) positive Block B8 E-Cad (ECH-6) positive CK8 (08kfckU93) positive Calponin-1 (HB071D) positive P40 (BC28) positive Block B11 E-Cad (ECH-6) positive CK8 (05oiayB85) positive Calponin-1 (PP568N) positive P40 (BC28) positive These tests were developed and their performance characteristics determined by [facility]. They may not have been cleared or approved by the U.S. Food and Drug Administration. The FDA has determined that such clearance or approval is not necessary. The above immunohistochemical/dualISH markers are ordered and reviewed by the Pathologist. INTERPRETATION: B. Right breast, 9o'clock, 7cm from nipple, ultrasound guided biopsy: Negative for malignancy. Intraductal hyperplasia with multifocal atypia. SJ.mr 05/11/2024
[2024-05-05] MEDS: Bupiv/Epi 0.25% 30 ML Vial (07:28)
--- NOTE | 2024-05-05 07:33 | PRE.ANES_ITS ---
ASA Classification* ASA Classification ASA Classification: 2 Assessment & Plan Anesthesia* Anesthesia Assessment Anesthesia Assessment: Discussed sedation and/or anesthesia options, risks, benefits, and alternatives with patient/parents/legal guardian/POA. Questions invited. The patient/parents/legal guardian/POA seems to understand and agrees to proceed with anesthesia plan. Reviewed the physical assessment, medical history, allergy history and patient home medications list prior to surgery/procedure/anesthetic and documented any changes. Performed airway and anesthesia risk assessments. Anesthesia Type Anesthesia Type: MAC (see written pre anesthesia record for full assessment) Anesthesia Focused Assessment* Airway Assessment Mouth opens: >3 cm Mallampati Score: II Focused Labs Anesthesia Preop lab: CBC WBC 8.4 K/mm3 (4.4-11.0) 02/10/24 13:11 RBC 4.76 M/mm3 (4.2-5.4) 02/10/24 13:11 Hgb 13.0 g/dL (12.0-15.0) 02/10/24 13:11 Hct 40.3 % (37-47) 02/10/24 13:11 Plt Count 333 K/mm3 (150-450) 02/10/24 13:11 CHEMISTRY Potassium 3.6 mmol/L (3.5-5.1) 02/10/24 13:11 Sodium 139 mmol/L (136-145) 02/10/24 13:11 BUN 15 mg/dL (7-18) 02/10/24 13:11 Creatinine 0.74 mg/dL (0.55-1.02) 02/10/24 13:11 Glucose 81 mg/dL (74-106) 02/10/24 13:11 TSH 0.83 uIU/mL (0.358-3.74) 11/27/23 10:11 COAG Urine Test Pending 05/05/24 07:08 Pre-Assessment Diagnosis/Proposed Procedure Planned Operative Procedure(s): EXCISION STERO RIGHT BREAST AND U/S Anesthesia History 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 When Was Last Pacemaker Check QUESTION #4 FULL TEXT: You/Your Family Experience fever (hyperthermia) with Anesthesia Last Oral Intake Last Oral intake: Last Oral Intake NPO since Meds taken in AM with sips of water? Meds patient instructed to take am of surgery PONV PONV - sap data analyst: PONV - sap data analyst Female Yes 04/29/24 09:17 HX of Motion Sickness Yes 04/29/24 09:17 HX of N/V After Surgery No 04/29/24 09:17 Non-Smoker Yes 04/29/24 09:17 Duration of Surgery greater Yes 04/29/24 09:17 than 60 minutes Number of Risk Factors 4 04/29/24 09:17 PONV Score Severe Risk 04/29/24 09:17 Height & Weight Height & Weight: Anesthesia: Height & Weight Height 5 ft 9 in 05/05/24 07:25 Weight: 121.563 kg 05/05/24 07:25 Respiratory Assessment Respiratory Assessment - sap data analyst: Respiratory Tract Infection Hx - sap data analyst Hx Respiratory Tract Infection No 04/29/24 09:17 STOP Sleep Apnea STOP Sleep Apnea - sap data analyst: STOP Sleep Apnea - sap data analyst Hx Hypertension No 04/29/24 09:17 Hx Sleep Apnea No 04/29/24 09:17 CPAP BIPAP Do you snore loudly (louder No 04/29/24 09:17 than talking or can be heard Do you often feel tired/ No 04/29/24 09:17 fatigued/ sleepy during daytime? Has anyone observed you stop No 04/29/24 09:17 breathing during sleep? STOP Results Negative 04/29/24 09:17 QUESTION #5 FULL TEXT : Do you snore loudly (louder than talking or can be heard through closed doors)? 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 Specify any problems Hx of Preganancy in last 3 No 04/29/24 09:17 Months Nurse Filling Out Transfusion DSCHRIBER 04/29/24 09:17 & Questions: Date: 04/29/24 04/29/24 09:17 Time: 09:19 04/29/24 09:17 Patient unable to answer at this time (ie. confused, unrespo /Reproduction History /Reproductive History - sap data analyst: /Reproductive Hx- sap data analyst Hx Now No 04/29/24 09:17 Gestational Age (in weeks): EDC: Hx Hx Para Hx Section SAB No 04/29/24 09:17 Active Medications Active Medications: Current Medications Generic Name Dose Route Start Last Admin Trade Name Freq PRN Reason Stop Dose Admin Lactated Ringer's 1,000 mls @ 15 mls/hr 05/05/24 07:15 IV .Q48H MAUREEN Cefazolin Sodium 3 gm/ Sodium 115 mls @ 150 mls/hr 05/05/24 07:30 Chloride IV 05/05/24 08:15 PREOP ONE PFSH Medical History (Updated 04/29/24 @ 09:22 by Vita Payne) Depression Anxiety Alcohol use Diabetes Migraine headache Dietary restriction Gastric reflux Shortness of breath on exertion Non-smoker History of edema Avulsion fracture Cyst of right breast Home Medications ?Medication ?Instructions ?Recorded ?Last Taken ?Type melatonin 5 mg capsule 5 mg PO PRN PRN sleep 09/11/22 Unknown History multivitamin 1 tab PO DAILY 09/11/22 Unknown History omeprazole 20 mg capsule,delayed 20 mg PO DAILY 09/16/22 Unknown History release Lactobacillus rhamnosus GG 10 1 cap PO DAILY 12/04/22 Unknown History billion cell capsule (Culturelle) metformin 500 mg tablet 500 mg PO DAILY 07/23/23 Unknown History bupropion HCl 150 mg 24 hr tablet, 150 mg PO QAM #90 tabs 01/21/24 Unknown Rx extended release (Wellbutrin XL) buspirone 5 mg tablet 5 mg PO DAILY 04/29/24 Unknown History buspirone 5 mg tablet 10 mg PO QHS 04/29/24 Unknown History metformin 500 mg tablet 1,000 mg PO QHS 04/29/24 Unknown History Allergy/AdvReac Type Severity Reaction Status Date / Time erythromycin base Allergy Mild rash/hives Verified 05/05/24 07:28 hydrocodone (From Vicodin) Allergy Mild nausea/ligh Verified 05/05/24 07:28 theadedness Family History (Updated 04/12/24 @ 09:56 by Zuly Gonzalez) Grandfather Alcoholism Cancer Diabetes Myocardial infarction Heart disease Kidney disease Mother Asthma Depression Diabetes Heart disease Thyroid disorder Grandmother Colon cancer Cervical cancer Diabetes Heart disease Ovarian cancer Brother Depression Heart disease Aunt CVA (cerebral vascular accident) mid-40s Surgical History (Updated 04/29/24 @ 09:22 by Vita Payne) No history of previous surgery Dental root implant present Social History household members: spouse current occupational status: employed 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 Rehab Review of Systems (Anesthesia) ROS Narrative System reviewed and no additional complaints, except as documented.
--- NOTE | 2024-05-05 07:49 | PCM.HP.BLA ---
History and Physical Date of Admission: 05/05/24 Date of Service: 04/25/24 MR#: [id number] Acct: [id number] Name: BIJU ELLSWORTH Rep #: [id number] : 1990 Provider: Dr. Elsa Buckley MD Age/Sex: 33/F Location: [facility] Status: Signed Signed Intake Vital Signs 04/12/2409:56 04/25/2413:26 Height 5 ft 9 in 5 ft 9 in Weight: 267 lb 268 lb 4 oz BMI 39.4 39.6 BP 136/90 H 123/84 H Blood Pressure Location Rt brachial Rt brachial Position Sitting Sitting Respiration 17 18 Pulse 104 H 82 Pulse Source Monitor Monitor Temp 97.3 F L Temp Source Temporal Pulse Oximetry (%) 97 99 Oxygen Delivery Method room air room air Intake Visit Reasons: DISCUSS SURGERY Chief Complaint: discuss surgery Accompanied by: Is patient in pain?: No Allergies acetaminophen (From Vicodin) Allergy (Mild, Verified 04/25/24 13:27) nausea/lightheadednesserythromycin base Allergy (Mild, Verified 04/25/24 13:27) rash/hiveshydrocodone (From Vicodin) Allergy (Mild, Verified 04/25/24 13:27) nausea/lightheadedness [facility] Medical History Avulsion fracture Cyst of right breast Surgical History Dental root implant present Family History (Updated 04/12/24 @ 09:56 by Zuly Gonzalez) Grandfather Alcoholism Cancer Diabetes Myocardial infarction Heart disease Kidney diseaseMother Asthma Depression Diabetes Heart disease Thyroid disorderGrandmother Colon cancer Cervical cancer Diabetes Heart disease Ovarian cancerBrother Depression Heart diseaseAunt CVA (cerebral vascular accident) mid-40s Social History household members: spouse current occupational status: employed 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 Patient did have focal intraductal hyperplasia with atypia in 1 the biopsies and the other biopsy had intraductal papilloma with atypia. Did recommend patient get excisional biopsies of both of these areas. Unable to see the ribbon clip well with bedside ultrasound as the lesion looked to be completely removed. Patient will need stereotactic guided wire localization for that site and ultrasound for the other. ROS General General: Yes weight change and fatigue; No appetite, colon cancer or breast cancer HEENT HEENT: No difficulty swallowing, eye injury, eye surgery, swollen glands or hoarseness Endo Endocrine: No thyroid disease, diabetes mellitus, thyroid cancer, Hair loss, heat intolerance or cold intolerance Skin Skin: Yes changing moles; No rash Breast Breast: Yes right breast lump, abnormal mammogram and abnormal US; No left breast lump, nipple discharge, breast pain or breast enlargement Musc Musculoskeletal: No back problems, arthritis, rheumatoid arthritis, gout or joint pain Cardio Cardiovascular: No murmur, pacemaker, heart disease, atrial fibrillation, high blood pressure, heart attack, heart stent, palpitations, shortness of breat with exertion or chest pain Psych Psychiatric: Yes depression and anxiety; No hearing voices Resp Respiratory: No shortness of breath, No sleep apnea, No cough, No COPD, No asthma, No emphysema and No wheezing Gastro Gastrointestinal: No abdominal pain, No nausea or vomiting, No diarrhea, No constipation, No blood in stool, No acid reflux, No hemorrhoids, No ulcers, No gallbladder problem and No black,tarry stools Tavares Hematologic: No blood thinners, No blood disorders, No bleeding, No anemia and No blood clots Neuro Neurologic: No numbness and No tingling Exam Const General: cooperative, healthy appearing and no acute distress HENMT Head: normal to inspection Chest Other: Breast inspection: Resolving ecchymosis to the right breast Right breast: Biopsy site well-healed, resolving ecchymosis to right lateral breast Resp Effort & Inspection: normal respiratory effort Cardio Rate: regular rate GI Inspection: non-distended Palpation: soft Skin General: no rashes or lesions noted Neuro General: patient oriented x3 Extrem General: no clubbing, cyanosis or edema Psych Affect: normal affect Assessment and Plan Assessment and Plan (1) Atypical ductal hyperplasia of right breast: Status: Acute (2) Intraductal papilloma of right breast: Status: Acute Comment: w atypia Orders: Orders Needle Loc 1st Lesion 05/05/24 Plan Patient is aware that due to the diagnosis of atypical ductal hyperplasia she is at increased risk of breast cancer and would qualify high risk screening options in the future. Discussed plan for stereotactic wire needle localization and ultrasound guided wire needle localization for the 2 right breast masses. Discussed with patient and her risk including but not limited to bleeding, infection, need for further surgery, cosmesis and anesthesia. Patient had no further questions this time. Elsa Buckley M.D. Pager: [phone] [facility] [address] [place] [address], [address] [place] [address] Office: [phone] Coding Level of Care Code Off vis,new,level 3 Diagnoses Atypical ductal hyperplasia of right breast N60.91 Intraductal papilloma of right breast D24.1 04/26/24 1557 <Electronically signed by Elsa Buckley MD> Date Elsa Buckley MD
[2024-05-05] MEDS: Lactated Ringers 1,000 ML 15 ML IV (07:52)
--- NOTE | 2024-05-05 08:00 | BI_ITS ---
SURGICAL BREAST SPECIMEN RADIOGRAPH CLINICAL: Document presence of tissue clip marker in biopsy specimen. FINDINGS: Specimen shows presence of tissue clip marker. Electronically Signed: Joel Ashby MD at 11:05 EDT , BI/Breast Biopsy Specimen IMPRESSION: undefined
[2024-05-05 08:01] LABS: Internal QC Validated? YES +Cl - CLEAR BKGD; Pregnancy, Urine Negative Negative
--- NOTE | 2024-05-05 08:30 | BRBX_PTH ---
PATIENT: BIJU ELLSWORTH LOC: [facility] [place] U#:[id number] AGE/SX: 33/F ROOM: RE05/05/[address]: Dr. Elsa Buckley MD : 1990 BED: DIS: 05/05/2024 SPEC #: [id number] RECD: 05/05/24 09:25 STATUS: KELLY REDarleen #: [id number] EDWIN: 05/05/24 08:[address]: Elsa Buckley DEPT: SURGICAL PATHOLOGY RECD BY: Saul Vargas ENTERED: 05/05/24 10:30 SP TYPE: BREAST BX OTHR DR: Dr. Karen Lucia MD Tissues: A - Right breast, NOS B - Right breast, NOS Procedures: Surgery Specimen Level IV HEADER OPERATION: Excision, stereotactic, right breast and ultrasound PRE-OP DIAGNOSIS: Atypical ductal hyperplasia of right breast, intraductal papilloma of right breast TISSUE SUBMITTED: A- Right breast biopsy- 9o'clock, 9cm *long stitch- lateral, short stitch- superior*, B- Right breast biopsy- 9o'clock, 7cm * long stitch- lateral, short stitch- superior* A. Ischemic Time: 6 minute B. Ischemic Time: 8 minute MICROSCOPIC DIAGNOSIS A. Right breast, 9o'clock, 9cm from nipple, lumpectomy with needle localization: Intraductal hyperplasia with focal atypia. Fibrocystic changes. Changes consistent with previous biopsy site. Negative for malignancy. B. Right breast, 9o'clock, 7cm from nipple, lumpectomy with needle localization: Intraductal hyperplasia with multifocal atypia. Hyalinized intraductal papilloma with atypia. Fibrocystic changes. Focal microcalcifications. Changes consistent with previous biopsy site. Negative for malignancy. See comment. 05/10/2024 COMMENT B. Immunohistochemistry ([id number]) supports the above diagnosis. Please make reference to previous specimen [id number] right breast mass, 9o'clock, 9cm from nipple with diagnosis of intraductal hyperplasia with focal atypia and right breast 9o'clock, 7cm from nipple with diagnosis of intraductal papilloma with atypia. Case has been reviewed in consultation with Dr. Wooten who concurs with the above diagnosis. IDC:AM MICROSCOPIC DESCRIPTION Slides are reviewed. GROSS DESCRIPTION A. Received fresh and post fixed in formalin is one container labeled with the patient's name and designated Right breast 9o'clock, 9cm. The specimen consists of a piece of ramires-yellow fibroadipose tissue with needle localization measuring 3.0 x 2.5 x 2.0cm. The specimen is inked as follows: anterior - yellow, posterior - black, superior - blue, inferior - green, medial - red and lateral - orange. The specimen is serially sectioned and reveal a biopsy cavity close to anterior and superior margin measuring 0.5cm in greatest dimension. The entire specimen is submitted in seven cassettes from medial to lateral margin. B. Received in fresh and post fixed in formalin is one container labeled with the patient's name and designated Right breast biopsy 9o'clock, 7cm. The specimen consists of a fibroadipose tissue with needle localization measuring 5.5 x 3.5 x 3.0cm. Serial sections reveal ramires-white fibrous area and focal hemorrhagic area consistent with previous biopsy site. This area is close to the superior and posterior margin of the specimen. No obvious mass lesion is identified. Emissions Inspector sections are submitted in twelve cassettes as follows: 1- perpendicular medial, lateral and anterior margin, 2-12- advertising account representative section of the fibrous area and biopsy area. Almost entire fibrous area and biopsy is submitted. More than 95% of the specimen is submitted. Sections are submitted after additional fixation. 05/06/2024 TC: 5 CPT:95927u7
[2024-05-05] MEDS: Cefazolin 3 GM in 0.9% Normal Saline (100mL Bag) 100 ML IV (08:39)
--- NOTE | 2024-05-05 09:30 | OP.PCM_ITS ---
Report of Operation Date of Procedure: 05/05/24 Pre-Operative Diagnosis: Intraductal papilloma with atypia right breast, atypic al ductal hyperplasia right breast Post-Operative Diagnosis: Same Surgery/Procedure Performed:: Excisional biopsy right breast x 2, stereotactic wire localization and ultrasound guided wire localization Surgeon: Elsa Buckley Type of Anesthesia: General/Supplemental Anesthesiologist: Manolo Osborn Special Medications: Ancef 3 g IV x 1 Specimen's removed: 1. Right breast mass 9:00 9 cm from the nipple, #2 right breast mass at 9:00 7 cm from the nipple Estimated Blood Loss (mL): < 10 cc Description of Procedure: Patient was taken to the mammography suite for stereotactic wire needle localization. The clip was localized and Bard wire was placed at the location of the 9:00 9 cm FTN clip after cleaning the skin with Betadine and using lidocaine at that location. Localization mammographies were completed. The patient was taken to the operating room and general anesthesia was induced. The right breast was prepped and draped in usual sterile fashion. A timeout was completed verifying correct patient, procedure, site, positioning, special equipment prior to beginning procedure. Ultrasound was use for localization of the 9:00 7 cm FTN breast mass using the Kopan needle. The wire was placed just inferiorly to the mass. A radial incision was planned in such a way as to minimize the amount of dissection to reach the mass. Both lesions were done similarly through the same incision. Flaps were raised in the location of the wire confirmed. The wire was delivered into the wound. 2 silk [id number] stay suture was placed around the wire and used for traction. Dissection was then taken down circumferentially, taking care to include the entire localization needle and wide margin of grossly normal tissue. The specimen and entire localizing wire were removed. The specimen was oriented and sent to radiology with the localization studies. Confirmation was received that the entire target lesion had been resected. The cavity was irrigated. Hemostasis was checked. The breast incision was closed with interrupted sutures of 3-0 Vicryl and subcuticular sutures of 4-0 Monocryl. No attempt was made to close the space. Steri-Strips and OpSite. And supportive surgical bra placed. The patient tolerated procedure well was taken to the postanesthesia care in stable condition Complications none
--- NOTE | 2024-05-05 09:36 | DCINST_ITS ---
Discharge Instructions Diet Discharge Diet: No restrictions Activity Discharge Activity: May Not Drive (for 2-3 days or while taking narcotic pain meds.) May shower in (days): 1 Lifting Restrictions: 10 pounds for 1 week. Dressing / Incision Call your doctor if your incision/area has: Continuous Slow Oozing, Sudden Increased Bleeding, Increased Pain/ Swelling and Increased Redness Call your doctor if you observe: Fever of 101 or Higher Suture Line Care: Avoid Pulling/Pushing and Avoid Pinching/Bending Remove Dressing in: 1 day Additional Dressing/Incision Instructions:: Remove bulky dressing tomorrow. May leave op-site dressing for 2-3 days. Okay to remove Steri-Strips from the breast incision in 7 to 10 days. Follow Up Care Please Follow Up With: Elsa Buckley MD When: Please call [phone] for an appointment to be seen in 2 week. Will call with pathology report when completed. Test Results: Test results from this visit will be discussed in further detail at your follow- up appointment, if applicable. Discharge Plan Admission Attending Provider: Elsa Buckley Primary Care Provider: Karen Lucia Instructions Print Language: Gabonese Discharge Orders/Prescriptions Prescriptions: New oxycodone 5 mg capsule 5 mg PO Q6H PRN (Reason: pain) 3 Days Qty: 7 0RF Continued omeprazole 20 mg capsule,delayed release(DR/EC) 20 mg PO DAILY melatonin 5 mg capsule 5 mg PO PRN PRN (Reason: sleep) multivitamin Tablet 1 tab PO DAILY Culturelle 10 billion cell capsule 1 cap PO DAILY metformin 500 mg tablet 500 mg PO DAILY Patient Comments: Take 2 tablets (1,000 mg)Tby mouth in the morningMand 2 tablets (1,000 mg) in the evening. Take with meals. bupropion HCl [Wellbutrin XL] 150 mg tablet extended release 24 hr 150 mg PO QAM Qty: 90 1RF buspirone 5 mg tablet 10 mg PO QHS metformin 500 mg tablet 1,000 mg PO QHS buspirone 5 mg tablet 5 mg PO DAILY Rx Instructions: orally twice a day; 5mg in morning, 10mg. at night Referrals / Follow Up: Karen Lucia MD [Primary Care Provider] - Disposition Disposition (needs filled in before D/C Order can be placed): Home, Self Care
--- NOTE | 2024-05-05 09:59 | PCM.POST.ANE ---
Anesthesia: Postop Eval I Current Vital Signs Temperature: 97 F Pulse Rate: 86 Blood Pressure: 132/86 Respiratory Rate: 16 Pulse Ox: 97 Oxygen Delivery Method: Room Air Assessment Airway patent: Yes Spontaneous unlabored respirations: Yes Mental status: Awake and Calm nausea: No Vomiting: No Anesthesia Complication: No Fluid Hydration Crystalloid volume administer (ml): 600 Total IV fluid infused: 600 Progress Note Anesthesia document: Postop Eval 1 completed: Yes
--- NOTE | 2024-05-05 10:20 | POSTOPAN2_ITS ---
Anesthesia Postop Eval I Sum Postop Eval Completion status Anesthesia document: Postop Eval 1 completed: Yes Anesthesia Postop Eval I Summary Anesthesia Postop Eval I Summary: Anesthesia Postop Eval I: Assessment Summary Airway patent Yes 05/05/24 09:59 ELECTRONIC COMPONENTS ASSEMBLER.MARILUOBRustam Spontaneous unlabored Yes 05/05/24 09:59 ELECTRONIC COMPONENTS ASSEMBLER.VANESSA respirations Mental status Awake,Calm 05/05/24 09:59 ELECTRONIC [employer]ONENTS ASSEMBLER.VANESSA nausea No 05/05/24 09:59 ELECTRONIC COMPONENTS ASSEMBLER.VANESSA Vomiting No 05/05/24 09:59 ELECTRONIC COMPONENTS ASSEMBLERKYAW Anesthesia Postop Eval I: Fluid Summary Crystalloid volume administer 600 05/05/24 09:59 ELECTRONIC COMPONENTS ASSEMBLER.VANESSA (ml) Colloids volume administered ( ml) Blood Product volume administered (ml) Total IV fluid infused 600 05/05/24 09:59 ELECTRONIC COMPONENTS ASSEMBLERKYAW Anesthesia Postop Eval I: Summary Notes Anesthesia Complication No 05/05/24 09:59 NELL Anesthesia Complication Comment: Post-operative progress note Anesthesia: Postop Eval II Evaluation Mental status: Awake Pain Level: 0 nausea: No Vomiting: No
--- NOTE | 2024-05-05 10:20 | PCM.POSTANE2 ---
Anesthesia Postop Eval I Sum Postop Eval Completion status Anesthesia document: Postop Eval 1 completed: Yes Anesthesia Postop Eval I Summary Anesthesia Postop Eval I Summary: Anesthesia Postop Eval I: Assessment Summary Airway patent Yes 05/05/24 09:59 WREATH [email or web address].[email or web address] Spontaneous unlabored Yes 05/05/24 09:59 WREATH MAKER.VANESSA respirations Mental status Awake,Calm 05/05/24 09:59 WREATH MAKER.VANESSA nausea No 05/05/24 09:59 WREATH MAKER.VANESSA Vomiting No 05/05/24 09:59 WREATH MAKERKYAW Anesthesia Postop Eval I: Fluid Summary Crystalloid volume administer 600 05/05/24 09:59 WREATH MAKER.VANESSA (ml) Colloids volume administered ( ml) Blood Product volume administered (ml) Total IV fluid infused 600 05/05/24 09:59 WREATH MAKERKYAW Anesthesia Postop Eval I: Summary Notes Anesthesia Complication No 05/05/24 09:59 NELL Anesthesia Complication Comment: Post-operative progress note Anesthesia: Postop Eval II Evaluation Mental status: Awake Pain Level: 0 nausea: No Vomiting: No
== END 2024-05-05 11:13 | disposition home or self-care (01) ==
LOC: SDC 06:58 → AC 07:00
PROVIDERS: Anesthesiology; PCP Internal Medicine; Referring Provider Surgery; Visit Provider Surgery
PROC: (CPT 19283; principal; 2024-05-05 08:15)
DX: D24.1 Benign neoplasm of right breast (principal); E11.9 Type 2 diabetes mellitus without complications; R92.0 Mammographic microcalcification found on diagnostic imaging of breast; N60.91 Unspecified benign mammary dysplasia of right breast; F41.9 Anxiety disorder, unspecified; K21.9 Gastro-esophageal reflux disease without esophagitis; F32.A Depression, unspecified; Z79.84 Long term (current) use of oral hypoglycemic drugs; Z79.899 Other long term (current) drug therapy
CPT/HCPCS: 19283; 19083; 19281; 76098; 81025; 88305; 88341; 88342; J7120; J2405

== ENCOUNTER → 2025-01-31 | Outpatient (CLI) | payer BC, SELFPAY ==
[2025-01-31 12:33] LABS: Absolute Lymphocyte Count 1.85 X10^3/uL (0.83-4.51); Absolute Neutrophil Count 3.5 X10^3/uL (2.0-7.7); Basophil# 0.05 X10^3/uL; Basophil% 0.8 % (0-1); Eosinophil# 0.15 X10^3/uL; Eosinophils% 2.5 % (0-5); Hemoglobin 12.2 g/dL (12.0-15.0); Lymphocyte # 1.85 X10^3/ul (0.83-4.51); Lymphocyte % 31.2 % (19-41); Mean Corp Hgb Conc 32.1 g/dL (32-36); Mean Corpuscular Hgb 27.7 pg (27.0-32.0); Mean Corpuscular Volume 86.4 fL (81-99); Mean Platelet Vol. 10.2 fl (6.2-12.0); Monocyte# 0.39 X10^3/uL; Monocyte% 6.6 % (0-10); NRBC Flagged by Analyzer 0 % (0-5); Neutrophil # 3.47 X10^3/uL (2.7-7.7); Neutrophil % 58.6 % (47-70); Platelet Count 298 K/mm3 (150-450); RBC Distribution Width SD 40.5 fl (35.1-43.9); White Blood Count 5.9 K/mm3 (4.4-11.0)
[2025-01-31 14:35] LABS: ALB/GLOB Ratio 1.6 RATIO (0.9-2.4); AST(SGOT) 16 U/L (<=31); Alanine Aminotransfer ALT/SGPT 22 U/L (<=34); Alkaline Phosphatase 58 U/L (35-104); Anion Gap 10 (5-15); BUN 11 mg/dL (4-19); BUN/Creat Ratio 13.4 RATIO (10-20); Carbon Dioxide 23.5 mmol/L (21.0-32.0); Chloride 107 mmol/L (98-108); Creatinine, Serum 0.84 mg/dL (0.70-1.20); EST Glomerular Filtration Rate 93 (>60); Globulin 2.5 g/dL (2.2-4.2); Glucose 87 mg/dL (70-99); Potassium 3.8 mmol/L (3.3-5.1); Protein, Total 6.5 g/dL (5.9-8.4); Sodium Level 140 mmol/L (133-145); Total Bilirubin 0.25 mg/dL (0.00-1.30); Vitamin B12 319 pg/mL (180-914); Vitamin D,25 Hydroxy 22.6 ng/mL (30-100)
[2025-02-01 04:07] LABS: PROGESTERONE 10.2 ng/mL (.)
== END | disposition home or self-care (01) ==
LOC: BIMLAB 09:30
PROVIDERS: PCP Internal Medicine; Visit Provider Internal Medicine
DX: Z13.29 Encounter for screening for other suspected endocrine disorder (principal)
CPT/HCPCS: 36415; 80053; 82306; 82607; 84144; 85025

== ENCOUNTER → 2025-04-10 | Outpatient (CLI) | payer BC, SELFPAY ==
--- NOTE | 2025-04-10 08:45 | BI_ITS ---
EXAM: SCRN MAMM (CAD)W/RAJ BILAT DATE: 04/10/2025 CLINICAL HISTORY: F, Age 34 y/o , 1 YEAR FOLLOWUP Left breast palpable abnormality which the patient 1st noted 1 month ago. History of atypical ductal hyperplasia and papilloma in the right breast that she had excised surgically. TECHNIQUE: SCRN MAMM (CAD)W/RAJ BILAT COMPARISON: Prior exam(s) dated 05/05/2024. FINDINGS: TISSUE DENSITY: There are scattered areas of fibroglandular density. Bilateral Breast Mammographic Findings: A radiopaque marker is placed over the left breast palpable abnormality which is located in the superior outer quadrant of the left breast. There is no mammographic abnormality to correlate. Further workup with ultrasound is indicated. No suspicious masses, suspicious cluster of microcalcifications, architectural distortion or secondary sign of malignancy is identified in either breast. BI/SCRN MAMM (CAD)W/RAJ BILAT IMPRESSION: The left breast palpable abnormality should be further worked up with eileen maier. OVERALL FINAL ASSESSMENT BI-RADS 0: INCOMPLETE - NEED ADDITIONAL IMAGING EVALUATION. RECOMMENDATION: Ultrasound Recommended A letter with findings and recommendations will be mailed to the patient. Reading Location: [id number]
== END | disposition home or self-care (01) ==
LOC: OPBI 08:33
PROVIDERS: PCP Internal Medicine; Referring Provider Surgery; Visit Provider Surgery
DX: Z12.31 Encounter for screening mammogram for malignant neoplasm of breast (principal); D24.1 Benign neoplasm of right breast
CPT/HCPCS: 77063; 77067

== ENCOUNTER → 2025-04-11 | Outpatient (CLI) | payer BC, SELFPAY ==
--- NOTE | 2025-04-11 09:58 | US_ITS ---
PROCEDURE: BREAST LIMITED UNILATERAL 04/11/2025 REASON FOR EXAM: F, Age 34 y/o , LUMP Left breast lump. COMPARISON: Prior mammogram dated April 10, 2025.. TECHNIQUE: BREAST LIMITED UNILATERAL. The lateral inferior aspect of the left breast was examined with ultrasound. FINDINGS: Dense fibroglandular tissue. No sonographic abnormality is seen. US/Breast Limited Unilateral IMPRESSION: Dense fibroglandular tissue. No sonographic abnormality is seen. BI-RADS 1: NEGATIVE RECOMMENDATION: Routine annual follow-up in 1 Year Reading Location: [id number]
== END | disposition home or self-care (01) ==
PROVIDERS: PCP Internal Medicine; Referring Provider Surgery; Visit Provider Surgery
DX: N63.20 Unspecified lump in the left breast, unspecified quadrant (principal)
CPT/HCPCS: 76642